=== PATIENT | female | born 1990 | race Caucasian/White ===

== ENCOUNTER 2016-07-09 03:20 | Emergency (ER) | payer OTHER ==
[~2016-07-09] VITALS: Ht 160 cm; Wt 91.5 kg
[~2016-07-09 03:20] MED LIST: AZIT250T94 PO; D-ME118S6 PO; IBUP-1542 PO
[2016-07-09 03:26] VITALS: Ht 160 cm; Wt 91.5 kg
[2016-07-09] MEDS ORDERED: ACETAMINOPHEN 500 MG TAB PO STA (04:43)
[2016-07-09] MEDS ORDERED: IBUPROFEN 800 MG TAB PO ONE (05:00)
[2016-07-09] MEDS ORDERED: AMOXICILLIN/CLAV 875 MG TAB PO ONE (05:00)
--- NOTE | 2016-07-09 05:07 | ERD ---
ER Documentation Chief Complaint Date/Time DATE: 07/09/16 TIME: 05:04 Chief Complaint sore throat, headache x 2 days HPI This is a 25-year-old female presents to the emergency room for evaluation of a sore throat, body aches, chills, and headache for the past 2 days. This patient states that her sore throat has gotten worse and it hurts when she swallows. She denies any difficulty breathing. She has not taken any medicine for her symptoms and came to the ER for evaluation. ROS All systems reviewed and are negative except as per history of present illness. Medications Home Meds Active Scripts Ibuprofen* (Motrin*) 600 Mg Tab, 600 MG PO Q6H Y for PAIN, #14 TAB Prov:MI LEUNG MD 07/01/15 Dextromethorphan Hb-Promethazine Hcl (Promethazine DM Syrup) 180 Ml Syrup, 5 ML PO Q6H Y for COUGH, #4 OZ Prov:MI LEUNG MD 07/01/15 Azithromycin* (Zithromax*) 250 Mg Tablet, 250 MG PO .ZPACK DIRECTED, #6 TAB TAKE 500 MG (2 TABS) THE FIRST DAY THEN 250 MG (1 TAB) DAYS 2-5 Prov:MI LEUNG MD 07/01/15 Allergies Allergies: Coded Allergies: No Known Allergy (Unverified , 07/01/15) PMhx/Soc History of Surgery: No Anesthesia Reaction: No Hx Neurological Disorder: No Hx Respiratory Disorders: No Hx Cardiac Disorders: No Hx Psychiatric Problems: No Hx Miscellaneous Medical Probl: No Hx Alcohol Use: No Hx Substance Use: No Hx Tobacco Use: No Physical Exam Vitals Vital Signs Date Time Temp Pulse Resp B/P Pulse Ox O2 Delivery O2 Flow Rate FiO2 07/09/16 03:26 101.7 116 20 137/67 98 Physical Exam INITIAL VITAL SIGNS: Reviewed by me GENERAL: The patient is well developed and appropriate for usual state of health in no apparent distress, warm to touch HEENT: Pharyngeal erythema with visible exudate noted on the bilateral tonsils, pupils equal, round, and reactive to light. EOMI. There is no scleral icterus. NECK: C-spine is soft and supple, there is no meningismus. There is no cervical lymphadenopathy. LUNGS: Clear to auscultation bilaterally. There are no rales, wheezes or rhonchi. HEART: Tachycardic, no murmurs, clicks, rubs or gallops. ABDOMEN: Soft, non-tender, non-distended. There are bowel sounds in all four quadrants. No rebound or guarding. EXTREMITIES: There is no peripheral cyanosis or edema. No focal swelling or erythema. NEUROLOGICAL: The patient moves all four extremities with 5/5 strength. Cranial nerves II - XII are intact. Normal gait. Alert and oriented SKIN: There is no apparent rash or petechiae. HEME/LYMPHATIC: There is no evidence of excessive bruising or lymphedema. PSYCHIATRIC: The patient does not appear anxious or depressed. Results 24 hrs Current Medications Medications (Trade) Dose Ordered Sig/Leticia Route PRN Reason Start Time Stop Time Status Last Admin Dose Admin Acetaminophen (Tylenol Tab) 1,000 mg ONCE STAT PO 07/09/16 04:43 07/09/16 04:45 DC 07/09/16 04:54 Ibuprofen (Motrin) 800 mg ONCE ONCE PO 07/09/16 05:00 07/09/16 05:01 DC 07/09/16 04:54 Amoxicillin/ Clavulanate Potassium (Augmentin) 875 mg ONCE ONCE PO 07/09/16 05:00 07/09/16 05:01 DC 07/09/16 05:03 Procedures/MDM This 25-year-old female presents to the emergency room for evaluation of multiple complaints including body aches, chills, fever, and sore throat. The patient was also complaining of a headache. This patient has no nuchal rigidity , negative Kernig and Babinski sign. She was febrile tachycardic on my examination. I did note white exudate in the oropharynx consistent with acute strep pharyngitis. This patient was given Tylenol and Motrin in the emergency room for pain and fever control. She was given 1 tab of Augmentin 875 mg in the emergency room. She will be discharged home at this time with a prescription for Motrin, and amoxicillin for acute strep pharyngitis. This patient has no signs of airway compromise at this time, she is tolerating secretions, no signs of tonsillar abscess or peritonsillar abscess Departure Diagnosis: Primary Impression: Acute streptococcal pharyngitis Additional Impression: Fever Condition: Stable ELISEO WHITFIELD DO Jul 09, 2016 05:07
[2016-07-09] MEDS ORDERED: AMO500 PO (05:08)
[2016-07-09] MEDS ORDERED: IBUP800T25 PO (05:08)
[2016-07-09 05:30] VITALS: PULSE 99; RESP 20; TEMP 100.6
== END 2016-07-09 05:30 | disposition home or self-care (01) ==
LOC: E/R 03:20
DX: J02.0 Streptococcal pharyngitis (principal); R50.9 Fever, unspecified
CPT/HCPCS: Z7610 ×3; 99283

== ENCOUNTER 2017-03-03 14:30 | Emergency (ER) | payer OTHER ==
[~2017-03-03] VITALS: Ht 157.5 cm; Wt 68.0 kg
[~2017-03-03 14:30] MED LIST changes: +AMOX500C2 PO; +IBUP800T25 PO
[2017-03-03 14:39] VITALS: Ht 157.5 cm; Wt 68.0 kg
[2017-03-03] MEDS ORDERED: ONDANSETRON (ODT) 4 MG TAB ODT STA (15:28)
[2017-03-03] MEDS ORDERED: FAMOTIDINE 20 MG TAB PO ONE (15:30)
--- NOTE | 2017-03-03 15:44 | ERD ---
ER Documentation Chief Complaint Chief Complaint ap with vomitinbg and diarrhea HPI 18-year-old female comes in with a one-day history nausea, vomiting and diarrhea as well as left quadrant abdominal pain. Patient reports 4 episodes of nonbloody nonbilious emesis with 4 episodes of loose stools are nonbloody non -mucousy. Her pain is in the left upper quadrant, nonradiating, mild, described as achy. She has not had any chills, chest pain, shortness breath. ROS All systems reviewed and are negative except as per history of present illness. Medications Home Meds Active Scripts Ondansetron (Ondansetron Odt) 4 Mg Tab.rapdis, 4 MG PO Q6H Y for NAUSEA AND/OR VOMITING, #10 TAB Prov:KEI BECKER PA-C 03/03/17 Ranitidine Hcl* (Zantac*) 150 Mg Tablet, 150 MG PO BID Y for EPIGASTRIC PAIN, # 30 TAB Prov:KEI BECKER PA-C 03/03/17 Amoxicillin* (Amoxicillin*) 500 Mg Cap, 500 MG PO TID for 10 Days, CAP Prov:ELISEO WHITFIELD DO 07/09/16 Ibuprofen* (Motrin*) 800 Mg Tab, 800 MG PO Q6H Y for PAIN AND OR ELEVATED TEMP, #30 TAB Prov:ELISEO WHITFIELD DO 07/09/16 Ibuprofen* (Motrin*) 600 Mg Tab, 600 MG PO Q6H Y for PAIN, #14 TAB Prov:MI LEUNG MD 07/01/15 Dextromethorphan Hb-Promethazine Hcl (Promethazine DM Syrup) 180 Ml Syrup, 5 ML PO Q6H Y for COUGH, #4 OZ Prov:MI LEUNG MD 07/01/15 Azithromycin* (Zithromax*) 250 Mg Tablet, 250 MG PO .ZPACK DIRECTED, #6 TAB TAKE 500 MG (2 TABS) THE FIRST DAY THEN 250 MG (1 TAB) DAYS 2-5 Prov:MI LEUNG MD 07/01/15 Allergies Allergies: Coded Allergies: No Known Allergy (Unverified , 07/01/15) PMhx/Soc History of Surgery: No Anesthesia Reaction: No Hx Neurological Disorder: No Hx Respiratory Disorders: No Hx Cardiac Disorders: No Hx Psychiatric Problems: No Hx Miscellaneous Medical Probl: No Hx Alcohol Use: No Hx Substance Use: No Hx Tobacco Use: No Physical Exam Vitals Vital Signs Date Time Temp Pulse Resp B/P Pulse Ox O2 Delivery O2 Flow Rate FiO2 03/03/17 14:39 98.1 89 18 147/89 99 Physical Exam General: Well-developed, well-nourished. The patient appears in no acute distress. HEENT: Head is normocephalic, atraumatic. No scleral icterus. Neck: Supple. Nontender. Lungs: Clear to auscultation. Normal air movement. Heart: Regular rate and rhythm. S1 and S2 are normal. No murmurs, gallops, or rubs. Abdomen: Soft, nontender, nondistended. Bowel sounds are normoactive. Extremities: No clubbing or cyanosis. Normal pulses. Moving extremities x 4. No weakness. Neurologic: Alert and oriented 3. No focal deficits. Skin: Normal turgor. No rash or lesions. Results 24 hrs Laboratory Tests Test 03/03/17 15:51 Bedside Urine pH (LAB) 5.5 Bedside Urine Protein (LAB) Negative Bedside Urine Glucose (UA) Negative Bedside Urine Ketones (LAB) Negative Bedside Urine Blood 1+ Bedside Urine Nitrite (LAB) Negative Bedside Urine Leukocyte Esterase (L Negative Current Medications Medications (Trade) Dose Ordered Sig/Leticia Route PRN Reason Start Time Stop Time Status Last Admin Dose Admin Ondansetron HCl (Zofran Odt) 4 mg ONCE STAT ODT 03/03/17 15:28 03/03/17 15:29 DC 03/03/17 15:55 Famotidine (Pepcid) 20 mg ONCE ONCE PO 03/03/17 15:30 03/03/17 15:31 DC 03/03/17 15:55 Procedures/MDM ED COURSE: Urine dip, urine was done. She was given a Pepcid 20 mg p.o. as well as Zofran 4 mg ODT. MEDICAL DECISION MAKIN-year-old female with vomiting, diarrhea with left upper quadrant abdominal pain, urine is negative and urine is negative for infection. Patient symptoms are most consistent with viral gastroenteritis. The patient's symptoms are treated with Pepcid and Zofran and she is feeling much better at this time. I doubt pancreatitis, dissection, acute coronary syndrome, acute hepatobiliary process. Departure Diagnosis: Primary Impression: Nausea vomiting and diarrhea Condition: Good KEI BECKER PA-C Mar 03, 2017 15:44
[2017-03-03 15:51] LABS: URINE BLOOD (Dip) POC 1+ (NEGATIVE)
[2017-03-03] MEDS ORDERED: ONDA4TAB14 PO (16:34)
[2017-03-03] MEDS ORDERED: RANI150T9 PO (16:34)
[2017-03-11] MEDS ORDERED: ONDA4TAB14 PO (21:20)
[2017-03-11] MEDS ORDERED: ACET325T33 PO (21:20)
== END 2017-03-03 18:40 | disposition home or self-care (01) ==
LOC: FTE 14:30
DX: R11.2 Nausea with vomiting, unspecified (principal); R19.7 Diarrhea, unspecified
CPT/HCPCS: 81003; Z7502; Z7610; 99283

== ENCOUNTER 2017-03-11 19:13 | Emergency (ER) | END 2017-03-11 21:41 | disposition home or self-care (01) ==

== ENCOUNTER 2017-03-18 11:56 | Emergency (ER) | payer OTHER ==
[~2017-03-18] VITALS: Ht 160 cm; Wt 92.3 kg
[~2017-03-18 11:56] MED LIST changes: +ACET325T33 PO; +ONDA4TAB14 PO; +RANI150T9 PO
[2017-03-18 12:14] VITALS: Ht 160 cm; Wt 92.3 kg
[2017-03-18] MEDS ORDERED: D-ME473S2 PO (12:37)
[2017-03-18] MEDS ORDERED: AZIT250T94 PO (12:37)
[2017-03-18] MEDS ORDERED: BENZ100C70 PO (12:37)
[2017-03-18 12:50] VITALS: TEMP 98.9
--- NOTE | 2017-03-18 18:54 | ERD ---
ER Documentation Chief Complaint Chief Complaint cough/congestion, fever x 1 week HPI 26-year-old female complaining of cough and congestion and fever 1 week. Patient has been taking Tessalon ywem-ico-vzomvnc with no alleviation of symptoms. Patient is also taking ibuprofen. Last dose was taken this morning. Denies medical problems. NKDA. Surgical history: Denies. Social history: Denies. No sick contacts ROS All systems reviewed and are negative except as per history of present illness. Medications Home Meds Active Scripts Azithromycin* (Zithromax*) 250 Mg Tablet, 250 MG PO .ZPACK DIRECTED, #6 TAB TAKE 500 MG (2 TABS) THE FIRST DAY THEN 250 MG (1 TAB) DAYS 2-5 Prov:KEVIN SPENCER PA-C 03/18/17 Benzonatate* (Tessalon Perle*) 100 Mg Capsule, 100 MG PO Q8H Y for COUGH, #30 CAP Prov:KEVIN SPENCER PA-C 03/18/17 Dextromethorphan Hb-Promethazine Hcl* (Promethazine DM* Syrup) 473 Ml Syrup, 5 ML PO Q6 Y for COUGH, #100 ML Prov:KEVIN SPENCER PA-C 03/18/17 Acetaminophen* (Tylenol*) 325 Mg Tablet, 2 TAB PO Q4 Y for PAIN AND OR ELEVATED TEMP, #30 TAB Prov:MICHELLE PERDOMO PA-C 03/11/17 Ondansetron (Ondansetron Odt) 4 Mg Tab.rapdis, 4 MG PO Q6H Y for NAUSEA AND/OR VOMITING, #20 TAB Prov:MICHELLE PERDOMO PA-C 03/11/17 Ondansetron (Ondansetron Odt) 4 Mg Tab.rapdis, 4 MG PO Q6H Y for NAUSEA AND/OR VOMITING, #10 TAB Prov:KEI BECKER PA-C 03/03/17 Ranitidine Hcl* (Zantac*) 150 Mg Tablet, 150 MG PO BID Y for EPIGASTRIC PAIN, # 30 TAB Prov:KEI BECKER PA-C 03/03/17 Amoxicillin* (Amoxicillin*) 500 Mg Cap, 500 MG PO TID for 10 Days, CAP Prov:ELISEO WHITFIELD DO 07/09/16 Ibuprofen* (Motrin*) 800 Mg Tab, 800 MG PO Q6H Y for PAIN AND OR ELEVATED TEMP, #30 TAB Prov:ELISEO WHITFIELD DO 07/09/16 Ibuprofen* (Motrin*) 600 Mg Tab, 600 MG PO Q6H Y for PAIN, #14 TAB Prov:MI LEUNG MD 07/01/15 Dextromethorphan Hb-Promethazine Hcl (Promethazine DM Syrup) 180 Ml Syrup, 5 ML PO Q6H Y for COUGH, #4 OZ Prov:MI LEUNG MD 07/01/15 Azithromycin* (Zithromax*) 250 Mg Tablet, 250 MG PO .ZPACK DIRECTED, #6 TAB TAKE 500 MG (2 TABS) THE FIRST DAY THEN 250 MG (1 TAB) DAYS 2-5 Prov:MI LEUNG MD 07/01/15 Allergies Allergies: Coded Allergies: No Known Allergy (Unverified , 07/01/15) PMhx/Soc Medical and Surgical Hx: pt denies Medical Hx, pt denies Surgical Hx History of Surgery: No Anesthesia Reaction: No Hx Neurological Disorder: No Hx Respiratory Disorders: No Hx Cardiac Disorders: No Hx Psychiatric Problems: No Hx Miscellaneous Medical Probl: No Hx Alcohol Use: Yes (once a week) Hx Substance Use: No Hx Tobacco Use: No Smoking Status: Never smoker Physical Exam Vitals Vital Signs Date Time Temp Pulse Resp B/P Pulse Ox O2 Delivery O2 Flow Rate FiO2 03/18/17 12:50 98.9 03/18/17 12:14 98.4 92 18 133/69 97 Physical Exam GENERAL: The patient is well-appearing, well-nourished, in no acute distress HEENT: Atraumatic. Conjunctivae are pink. Pupils equal, round, and reactive to light. There is no scleral icterus. Tympanic membranes clear bilaterally. Oropharynx clear. No nystagmus or photophobia. NECK: C-spine is soft and supple. There is no meningismus. There is no cervical lymphadenopathy. No JVD. No bruits. No goiter. CHEST: Clear to auscultation bilaterally. There are no rales, wheezes or rhonchi. HEART: Regular rate and rhythm. No murmurs, clicks, rubs or gallops. No S3 or S4. ABDOMEN:Soft, nontender and nondistended. Good bowel sounds. No rebound or guarding. No gross peritonitis. No gross organomegaly or masses. No Anglin sign or McBurney point tenderness. Procedures/MDM MDM: 26-year-old female complaining of cough and congestion 1 week. I have low suspicion for pneumonia as patient's breath sounds are within normal limits and vital signs are stable. I have low suspicion for bacterial HEENT infection. Patient's exam is within normal limits. I feel the patient would benefit from supportive medication for her cough. I have low suspicion for pulmonary emergency or cardiac emergency at this time. Vital signs are stable and exam is non-concerning. I believe patient has viral cough. Patient is discharged with strict ER precautions and recommended to follow-up with PMD within 1-2 days for close evaluation. Patient is discharged with strict ER precautions. Departure Diagnosis: Primary Impression: Cough Condition: Stable Patient Instructions: Cough, Chronic, Uncertain Cause, (Adult) Referrals: [facility] (PCP) Additional Instructions: FOLLOW UP WITH YOUR PRIMARY CARE PHYSICIAN TOMORROW.Return to this facility if you are not improving as expected. KEVIN SPENCER PA-C Mar 18, 2017 18:54
== END 2017-03-18 12:50 | disposition home or self-care (01) ==
LOC: FTE 11:56
DX: R05 Cough (principal); R09.81 Nasal congestion
CPT/HCPCS: 99284

== ENCOUNTER 2017-06-03 14:52 | Emergency (ER) | END 2017-06-03 15:05 | disposition home or self-care (01) ==

== ENCOUNTER 2017-06-18 04:33 | Emergency (ER) | END 2017-06-18 08:31 | disposition home or self-care (01) ==

== ENCOUNTER 2017-12-26 19:44 | Emergency (ER) | END 2017-12-26 21:28 | disposition home or self-care (01) ==

== ENCOUNTER 2018-08-19 00:11 | Emergency (ER) | payer MEDICAID, OTHER ==
[~2018-08-19] VITALS: Ht 154.9 cm; Wt 89.0 kg
[~2018-08-19 00:11] MED LIST changes: +ALBU18HF INHALATION; +AZIT250T PO; -AZIT250T94 PO; +BECL10.6 IH; +BENZ-6 PO; +BENZ200C68 PO; +CETI10CA PO; +D-ME118S24 PO; +D-ME473S2 PO; +FLUT9.9S NASAL; +GUAI118L22 PO; -IBUP800T25 PO; +IBUP800T48 PO; +PRED20TA PO; +RANI150T35 PO; -RANI150T9 PO
[2018-08-19 00:21] VITALS: Ht 154.9 cm; Wt 89.0 kg
--- NOTE | 2018-08-19 02:57 | ERD ---
ER Documentation Chief Complaint Chief Complaint mid epigastric pain x 2 weeks, denies n/v HPI This is a 27-year-old female who presents here in the emergency department with complaints of midepigastric pain that is on and off for about 2 weeks. LMP: 07/04/2018. A0. Denies headache, head injury, loss of consciousness, dizziness, neck pain, neck stiffness, throat pain, difficulty swallowing, difficulty breathing lying flat, shoulder pain, chest pain, back pain, nausea, vomiting, constipation, diarrhea, urinary symptoms, or possibility being , loss of bowel and bladder control, trauma, injury, falls, difficulty walking due to pain, numbness or tingling sensation, calf pain, recent travel, recent major surgery in the last 3 weeks, calf pain, recent long travel, recent exposure to any illness, re cent antibiotic use in the last 3 months, fever, chills, seizures. Past medical history: Surgical history: Social: Denies smoking, use of alcoholic beverages, use of illegal drugs. ROS All systems reviewed and are negative except as per history of present illness. Medications Home Meds Active Scripts Ondansetron Hcl* (Zofran*) 4 Mg Tablet, 4 MG PO Q8H PRN for NAUSEA AND/OR VOMITING, #30 TAB Prov:PASILABLANCOEHZOE F 08/19/18 Ibuprofen* (Motrin*) 800 Mg Tab, 800 MG PO Q6H PRN for PAIN AND OR ELEVATED TEMP, #30 TAB Prov:SOPHIEILABLANCOEHAR F 08/19/18 Cephalexin* (Keflex*) 500 Mg Capsule, 500 MG PO TID for 7 Days, CAP Prov:PASILABANEHAR F 08/19/18 D-Methorphan Hb/P-Epd HCl/Bpm (Oekwvwgwlv-Hpbnynsccgo-Mg Syr) 118 Ml Syrup, 5 ML PO Q4H PRN for COUGH, #1 BOTTLE Prov:LAWRENCE RIGGS DO 04/29/18 Beclomethasone Dipropionate (Qvar Redihaler (40 MCG)) 10.6 Gm Hfa.aeroba, 10.6 GM IH BID for cough, #1 INH Prov:LAWRENCE RIGGS DO 04/29/18 Ibuprofen* (Motrin*) 600 Mg Tab, 600 MG PO Q6, #30 TAB Prov:MARIETTA ABRAHAM PA-C 12/26/17 Benzonatate* (Benzonatate*) 200 Mg Capsule, 200 MG PO TID PRN for COUGH, #20 CAP Prov:MARIETTA ABRAHAM PA-C 12/26/17 Prednisone* (Prednisone*) 20 Mg Tab, 40 MG PO DAILY for 4 Days, TAB Prov:MARIETTA ABRAHAM PA-C 12/26/17 Albuterol Sulfate* (Ventolin HFA*) 18 Gm Hfa.aer.ad, 2 PUFF INHALATION Q4H, #1 INHALER Prov:MARIETTA ABRAHAM PA-C 12/26/17 Azithromycin* (Zithromax*) 250 Mg Tablet, 250 MG PO .ZPACK DIRECTED, #6 TAB TAKE 500 MG (2 TABS) THE FIRST DAY THEN 250 MG (1 TAB) DAYS 2-5 Prov:MARIETTA ABRAHAM PA-C 12/26/17 Guaifenesin/Codeine Phosphate (CHERATUSSIN AC SYRUP) 118 Ml Liquid, 5 ML PO Q4H PRN for COUGH, #118 ML Prov:KEI BECKER PA-C 06/18/17 Cetirizine Hcl* (Zyrtec*) 10 Mg Capsule, 10 MG PO DAILY, #10 TAB.CHEW Prov:KEI BECKER PA-C 06/18/17 Fluticasone Propionate (Flonase Allergy Relief) 9.9 Ml [place].susp, 1 SPRAY NASAL BID, #1 BOTTLE TO EACH NOSTRIL Prov:KEI BECKER PA-C 06/18/17 Prednisone* (Prednisone*) 20 Mg Tab, 40 MG PO DAILY for 5 Days, TAB Prov:KEI BECKER PA-C 06/18/17 Benzonatate* (Tessalon Perle*) 100 Mg Capsule, 100 MG PO Q8H PRN for COUGH, #30 CAP Prov:KEVIN SPENCER PA-C 06/03/17 Dextromethorphan Hb-Promethazine Hcl* (Promethazine DM* Syrup) 473 Ml Syrup, 5 ML PO Q6 PRN for COUGH, #100 ML Prov:KEVIN SPENCER PA-C 06/03/17 Azithromycin* (Zithromax*) 250 Mg Tablet, 250 MG PO .ZPACK DIRECTED, #6 TAB TAKE 500 MG (2 TABS) THE FIRST DAY THEN 250 MG (1 TAB) DAYS 2-5 Prov:KEVIN SPENCER PA-C 03/18/17 Benzonatate* (Tessalon Perle*) 100 Mg Capsule, 100 MG PO Q8H PRN for COUGH, #30 CAP Prov:KEVIN SPENCER PA-C 03/18/17 Dextromethorphan Hb-Promethazine Hcl* (Promethazine DM* Syrup) 473 Ml Syrup, 5 ML PO Q6 PRN for COUGH, #100 ML Prov:KEVIN SPENCER PA-C 03/18/17 Acetaminophen* (Tylenol*) 325 Mg Tablet, 2 TAB PO Q4 PRN for PAIN AND OR ELEVATED TEMP, #30 TAB Prov:MICHELLE PERDOMO PA-C 03/11/17 Ondansetron (Ondansetron Odt) 4 Mg Tab.rapdis, 4 MG PO Q6H PRN for NAUSEA AND/OR VOMITING, #20 TAB Prov:MICHELLE PERDOMO PA-C 03/11/17 Ondansetron (Ondansetron Odt) 4 Mg Tab.rapdis, 4 MG PO Q6H PRN for NAUSEA AND/OR VOMITING, #10 TAB Prov:KEI BECKER PA-C 03/03/17 Ranitidine Hcl* (Zantac*) 150 Mg Tablet, 150 MG PO BID PRN for EPIGASTRIC PAIN, #30 TAB Prov:KEI BECKER PA-C 03/03/17 Amoxicillin* (Amoxicillin*) 500 Mg Cap, 500 MG PO TID for 10 Days, CAP Prov:ELISEO WHITFIELD DO 07/09/16 Ibuprofen* (Motrin*) 800 Mg Tab, 800 MG PO Q6H PRN for PAIN AND OR ELEVATED TEMP, #30 TAB Prov:ELISEO WHITFIELD DO 07/09/16 Ibuprofen* (Motrin*) 600 Mg Tab, 600 MG PO Q6H PRN for PAIN, #14 TAB Prov:MI LEUNG MD 07/01/15 Dextromethorphan Hb-Promethazine Hcl (Promethazine DM Syrup) 180 Ml Syrup, 5 ML PO Q6H PRN for COUGH, #4 OZ Prov:MI LEUNG MD 07/01/15 Azithromycin* (Zithromax*) 250 Mg Tablet, 250 MG PO .ZPACK DIRECTED, #6 TAB TAKE 500 MG (2 TABS) THE FIRST DAY THEN 250 MG (1 TAB) DAYS 2-5 Prov:MI LEUNG MD 07/01/15 Allergies Allergies: Coded Allergies: No Known Allergy (Unverified , 08/19/18) PMhx/Soc Medical and Surgical Hx: pt denies Medical Hx, pt denies Surgical Hx History of Surgery: No Anesthesia Reaction: No Hx Neurological Disorder: No Hx Respiratory Disorders: No Hx Cardiac Disorders: No Hx Psychiatric Problems: No Hx Miscellaneous Medical Probl: No Hx Alcohol Use: No Hx Substance Use: No Hx Tobacco Use: No Smoking Status: Never smoker Physical Exam Vitals Physical Exam Const: No acute distress Head: Atraumatic Eyes: Normal Conjunctiva ENT: Normal External Ears, Nose and Mouth. Neck: Full range of motion. No meningismus. Resp: Clear to auscultation bilaterally Cardio: Regular rate and rhythm, no murmurs Abd: Soft, non tender, non distended. Normal bowel sounds. There is right upper abdominal tenderness to palpation. 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 No vesicular lesions. Negative [place] sign (heel jar test). Negative psoas sign. Negative Rovsing sign. No CVA tenderness. Ambulatory with steady gait and without pain to lower abdomen. Skin: No petechiae or rashes. No vesicular lesions. Color appears normal for ethnicity. Back: No midline or flank tenderness Ext: No cyanosis, or edema Neur: Awake and alert. No neurological deficits. Psych: Normal Mood and Affect Results 24 hrs Laboratory Tests Test 08/19/18 03:18 08/19/18 03:30 White Blood Count 9.9 10^3/ul Red Blood Count 4.58 10^6/ul Hemoglobin 13.2 g/dl Hematocrit 41.3 % Mean Corpuscular Volume 90.2 fl Mean Corpuscular Hemoglobin 28.8 pg Mean Corpuscular Hemoglobin Concent 32.0 g/dl Red Cell Distribution Width 12.4 % Platelet Count 316 10^3/UL Mean Platelet Volume 10.4 fl Immature Granulocytes % 0.300 % Neutrophils % 67.8 % Lymphocytes % 23.2 % Monocytes % 7.0 % Eosinophils % 1.5 % Basophils % 0.2 % Nucleated Red Blood Cells % 0.0 /100WBC Immature Granulocytes # 0.030 10^3/ul Neutrophils # 6.7 10^3/ul Lymphocytes # 2.3 10^3/ul Monocytes # 0.7 10^3/ul Eosinophils # 0.2 10^3/ul Basophils # 0.0 10^3/ul Nucleated Red Blood Cells # 0.0 10^3/ul Urine Color YELLOW Urine Clarity CLOUDY Urine pH 7.0 Urine Specific [place] 1.011 Urine Ketones NEGATIVE mg/dL Urine Nitrite NEGATIVE mg/dL Urine Bilirubin NEGATIVE mg/dL Urine Urobilinogen NEGATIVE mg/dL Urine Leukocyte Esterase 1+ Raphael/ul Urine Microscopic RBC 2 /HPF Urine Microscopic WBC 11 /HPF Urine Squamous Epithelial Cells MANY /HPF Urine Amorphous Crystals FEW /HPF Urine Bacteria FEW /HPF Urine Hemoglobin NEGATIVE mg/dL Urine Glucose NEGATIVE mg/dL Urine Total Protein NEGATIVE mg/dl Sodium Level 142 mmol/L Potassium Level 3.7 mmol/L Chloride Level 105 mmol/L Carbon Dioxide Level 29 mmol/L Anion Gap 8 Blood Urea Nitrogen 11 mg/dl Creatinine 0.55 mg/dl Est Glomerular Filtrat Rate mL/min > 60 mL/min Glucose Level 108 mg/dl Calcium Level 8.9 mg/dl Total Bilirubin 0.3 mg/dl Direct Bilirubin 0.00 mg/dl Indirect Bilirubin 0.3 mg/dl Aspartate Amino Transf (AST/SGOT) 27 IU/L Alanine Aminotransferase (ALT/SGPT) 31 IU/L Alkaline Phosphatase 66 IU/L Total Protein 7.9 g/dl Albumin 4.3 g/dl Globulin 3.60 g/dl Albumin/Globulin Ratio 1.19 Amylase Level 80 U/L Lipase 145 U/L POC Beta HCG, Qualitative NEGATIVE Current Medications Medications Dose Sig/Leticia Start Time Status Last (Trade) Ordered Route PRN Stop Time Admin Dose Reason Admin Ondansetron 4 mg ONCE STAT 08/19/18 DC 08/19/18 HCl (Zofran IV 02:58 03:14 Inj) 08/19/18 03:01 Morphine 4 mg ONCE STAT 08/19/18 DC 08/19/18 Sulfate IV 02:58 03:14 (morphine) 08/19/18 03:01 Sodium 1,000 ml @ Q1H ONCE 08/19/18 DC 08/19/18 Chloride 1,000 mls/hr IV 03:00 03:14 08/19/18 03:59 Procedures/MDM Diagnostic tests: POC urine : Negative. Urinalysis: Reviewed. Blood works: Reviewed. Ultrasound of the gallbladder: Unremarkable right upper quadrant ultrasound. Negative for gallstones. Treatment: Saline lock. Normal saline IV. Morphine IV. Zofran IV. Re-evaluation: No episode of emesis here in the emergency department. Negative Anglin sign. Negative [place] sign (heel jar test). Negative psoas sign. Negative Rovsing sign. Able to jump twice without developing lower abdominal pain. No CVA tenderness. Stated that she feels much better at this time and that she is ready to go home. Differential diagnosis I have low suspicion for sepsis, cholecystitis, pancreatitis, diverticulitis, shingles, bowel obstruction, obstructing kidney stones, nephrolithiasis, pyelonephritis, septic stone, ovarian cyst rupture, ovarian torsion. Final diagnosis: UTI. Abdominal pain. Prescription: Keflex. Motrin. Zofran. Follow-up with PCP in the next 24-48 hours. Come back here in the emergency department for any new symptoms or any worsening symptoms. All questions and concerns were answered. Patient and family members verbalized understanding and agreed with plan of care. Hemodynamically stable on discharge. Departure Diagnosis: Primary Impression: Abdominal pain Additional Impression: Urinary tract infection Condition: Stable Additional Instructions: Follow-up with PCP in the next 24-48 hours. Come back here in the emergency department for any new symptoms or any worsening symptoms. ARABELLA WIN August 19, 2018 02:57
[2018-08-19] MEDS ORDERED: morphine 4 MG/ML VIAL IV STA (02:58)
[2018-08-19] MEDS ORDERED: ONDANSETRON 4 MG INJ IV STA (02:58)
[2018-08-19] MEDS ORDERED: SOD CHLORIDE 0.9% 1,000 ML IV ONE (03:00)
[2018-08-19] MEDS ORDERED: CEPH-443 PO (05:17)
[2018-08-19] MEDS ORDERED: ONDA4TAB8 PO (05:17)
[2018-08-19] MEDS ORDERED: IBUP800T48 PO (05:17)
[2018-08-19 05:47] VITALS: BP 132/82; PULSE 88; RESP 16
== END 2018-08-19 05:47 | disposition home or self-care (01) ==
LOC: FTE 00:11
DX: N39.0 Urinary tract infection, site not specified (principal)
CPT/HCPCS: 36415; 76705; 80053; 81001; 81025; 82150; 83690; 85025; 87086; 96374; 96375; J2270; J2405; J7030; Z7502

== ENCOUNTER 2018-09-05 02:16 | Emergency (ER) | payer MEDICAID ==
[~2018-09-05] VITALS: Ht 154.9 cm; Wt 89.9 kg
[~2018-09-05 02:16] MED LIST changes: +CEPH-443 PO; +ONDA4TAB8 PO
[2018-09-05 02:23] VITALS: BP 126/81; PULSE 80; RESP 18; Ht 154.9 cm; Wt 89.9 kg
[2018-09-05] MEDS ORDERED: D-ME118S24 PO (05:05)
[2018-09-05] MEDS ORDERED: AMOX1TAB10 PO (05:08)
--- NOTE | 2018-09-05 05:10 | ERD ---
ER Documentation Chief Complaint Chief Complaint cough x 10 days, also c/o right earache ROS All systems reviewed and are negative except as per history of present illness. Medications Home Meds Active Scripts Amoxicillin/Potassium Clav (Amox-Clav 875-125 mg Tablet) 875-125 mg Tab, 1 TAB PO BID for right ear infection for 5 Days, #14 TAB Prov:LAWRENCE RIGGS DO 09/05/18 D-Methorphan Hb/P-Epd HCl/Bpm (Fkaoxnfnsk-Vzpzqbtgsff-Iw Syr) 118 Ml Syrup, 5 ML PO Q4H PRN for COUGH for 10 Days, #1 BOTTLE Prov:LAWRENCE RIGGS DO 09/05/18 Ondansetron Hcl* (Zofran*) 4 Mg Tablet, 4 MG PO Q8H PRN for NAUSEA AND/OR VOMITING, #30 TAB Prov:ARABELLA WIN 08/19/18 Ibuprofen* (Motrin*) 800 Mg Tab, 800 MG PO Q6H PRN for PAIN AND OR ELEVATED TEMP, #30 TAB Prov:ARABELLA WIN 08/19/18 Cephalexin* (Keflex*) 500 Mg Capsule, 500 MG PO TID for 7 Days, CAP Prov:ARABELLA WIN 08/19/18 D-Methorphan Hb/P-Epd HCl/Bpm (Xcsjhbfyvy-Xswpjscnfva-Df Syr) 118 Ml Syrup, 5 ML PO Q4H PRN for COUGH, #1 BOTTLE Prov:LAWRENCE RIGGS DO 04/29/18 Beclomethasone Dipropionate (Qvar Redihaler (40 MCG)) 10.6 Gm Hfa.aeroba, 10.6 GM IH BID for cough, #1 INH Prov:LAWRENCE RIGGS DO 04/29/18 Ibuprofen* (Motrin*) 600 Mg Tab, 600 MG PO Q6, #30 TAB Prov:MARIETTA ABRAHAM PA-C 12/26/17 Benzonatate* (Benzonatate*) 200 Mg Capsule, 200 MG PO TID PRN for COUGH, #20 CAP Prov:MARIETTA ABRAHAM PA-C 12/26/17 Prednisone* (Prednisone*) 20 Mg Tab, 40 MG PO DAILY for 4 Days, TAB Prov:MARIETTA ABRAHAM PA-C 12/26/17 Albuterol Sulfate* (Ventolin HFA*) 18 Gm Hfa.aer.ad, 2 PUFF INHALATION Q4H, #1 INHALER Prov:MARIETTA ABRAHAM PA-C 12/26/17 Azithromycin* (Zithromax*) 250 Mg Tablet, 250 MG PO .ZPACK DIRECTED, #6 TAB TAKE 500 MG (2 TABS) THE FIRST DAY THEN 250 MG (1 TAB) DAYS 2-5 Prov:MARIETTA ABRAHAM PA-C 12/26/17 Guaifenesin/Codeine Phosphate (CHERATUSSIN AC SYRUP) 118 Ml Liquid, 5 ML PO Q4H PRN for COUGH, #118 ML Prov:KEI BECKER PA-C 06/18/17 Cetirizine Hcl* (Zyrtec*) 10 Mg Capsule, 10 MG PO DAILY, #10 TAB.CHEW Prov:KEI BECKER PA-C 06/18/17 Fluticasone Propionate (Flonase Allergy Relief) 9.9 Ml [place].susp, 1 SPRAY NASAL BID, #1 BOTTLE TO EACH NOSTRIL Prov:KEI BECKER PA-C 06/18/17 Prednisone* (Prednisone*) 20 Mg Tab, 40 MG PO DAILY for 5 Days, TAB Prov:KEI BECKER PA-C 06/18/17 Benzonatate* (Tessalon Perle*) 100 Mg Capsule, 100 MG PO Q8H PRN for COUGH, #30 CAP Prov:KEVIN SPENCER PA-C 06/03/17 Dextromethorphan Hb-Promethazine Hcl* (Promethazine DM* Syrup) 473 Ml Syrup, 5 ML PO Q6 PRN for COUGH, #100 ML Prov:KEVIN SPENCER PA-C 06/03/17 Azithromycin* (Zithromax*) 250 Mg Tablet, 250 MG PO .ZPACK DIRECTED, #6 TAB TAKE 500 MG (2 TABS) THE FIRST DAY THEN 250 MG (1 TAB) DAYS 2-5 Prov:KEVIN SPENCER PA-C 03/18/17 Benzonatate* (Tessalon Perle*) 100 Mg Capsule, 100 MG PO Q8H PRN for COUGH, #30 CAP Prov:KEVIN SPENCER PA-C 03/18/17 Dextromethorphan Hb-Promethazine Hcl* (Promethazine DM* Syrup) 473 Ml Syrup, 5 ML PO Q6 PRN for COUGH, #100 ML Prov:KEVIN SPENCER PA-C 03/18/17 Acetaminophen* (Tylenol*) 325 Mg Tablet, 2 TAB PO Q4 PRN for PAIN AND OR ELEVATED TEMP, #30 TAB Prov:MICHELLE PERDOMO PA-C 03/11/17 Ondansetron (Ondansetron Odt) 4 Mg Tab.rapdis, 4 MG PO Q6H PRN for NAUSEA AND/OR VOMITING, #20 TAB Prov:MICHELLE PERDOMO PA-C 03/11/17 Ondansetron (Ondansetron Odt) 4 Mg Tab.rapdis, 4 MG PO Q6H PRN for NAUSEA AND/OR VOMITING, #10 TAB Prov:KEI BECKER PA-C 03/03/17 Ranitidine Hcl* (Zantac*) 150 Mg Tablet, 150 MG PO BID PRN for EPIGASTRIC PAIN, #30 TAB Prov:KEI BECKER PA-C 03/03/17 Amoxicillin* (Amoxicillin*) 500 Mg Cap, 500 MG PO TID for 10 Days, CAP Prov:ELISEO WHITFIELD DO 07/09/16 Ibuprofen* (Motrin*) 800 Mg Tab, 800 MG PO Q6H PRN for PAIN AND OR ELEVATED TEMP, #30 TAB Prov:ELISEO WHITFIELD DO 07/09/16 Ibuprofen* (Motrin*) 600 Mg Tab, 600 MG PO Q6H PRN for PAIN, #14 TAB Prov:MI LEUNG MD 07/01/15 Dextromethorphan Hb-Promethazine Hcl (Promethazine DM Syrup) 180 Ml Syrup, 5 ML PO Q6H PRN for COUGH, #4 OZ Prov:MI LEUNG MD 07/01/15 Azithromycin* (Zithromax*) 250 Mg Tablet, 250 MG PO .ZPACK DIRECTED, #6 TAB TAKE 500 MG (2 TABS) THE FIRST DAY THEN 250 MG (1 TAB) DAYS 2-5 Prov:MI LEUNG MD 07/01/15 Allergies Allergies: Coded Allergies: No Known Allergy (Unverified , 5/31/19) PMhx/Soc History of Surgery: No Anesthesia Reaction: No Hx Neurological Disorder: No Hx Respiratory Disorders: Yes (ASTHMA) Hx Cardiac Disorders: No Hx Psychiatric Problems: No Hx Miscellaneous Medical Probl: No Hx Alcohol Use: No Hx Substance Use: No Hx Tobacco Use: No Smoking Status: Never smoker Physical Exam Vitals Vital Signs Date Temp Pulse Resp B/P (MAP) Pulse Ox O2 O2 Flow FiO2 Time Delivery Rate 09/05/18 98.2 80 18 126/81 99 02:23 (96) Physical Exam Const: No acute distress Head: Atraumatic Eyes: Normal Conjunctiva ENT: Normal External Ears, Nose and Mouth. Neck: Full range of motion. No meningismus. Resp: Clear to auscultation bilaterally Cardio: Regular rate and rhythm, no murmurs Abd: Soft, non tender, non distended. Normal bowel sounds Skin: No petechiae or rashes Back: No midline or flank tenderness Ext: No cyanosis, or edema Neur: Awake and alert Psych: Normal Mood and Affect Departure Diagnosis: Primary Impression: Right otitis media Otitis media type: unspecified Qualified Codes: H66.91 - Otitis media, unspecified, right ear Additional Impression: Cough Condition: Fair Patient Instructions: Cough, Chronic, Uncertain Cause, (Adult), Otitis Media, Abx Tx (Adult) Referrals: [facility] YOU HAVE RECEIVED A MEDICAL SCREENING EXAM AND THE RESULTS INDICATE THAT YOU DO NOT HAVE A CONDITION THAT REQUIRES URGENT TREATMENT IN THE EMERGENCY DEPARTMENT. FURTHER EVALUATION AND TREATMENT OF YOUR CONDITION CAN WAIT UNTIL YOU ARE SEEN IN YOUR DOCTORS OFFICE WITHIN THE NEXT 1-2 DAYS. IT IS YOUR RESPONSIBILITY TO MAKE AN APPOINTMENT FOR FOLOW-UP CARE. IF YOU HAVE A PRIMARY DOCTOR --you should call your primary doctor and schedule an appointment IF YOU DO NOT HAVE A PRIMARY DOCTOR YOU CAN CALL OUR PHYSICIAN REFERRAL HOTLINE AT IF YOU CAN NOT AFFORD TO SEE A PHYSICIAN YOU CAN CHOSE FROM THE FOLLOWING [facility] [address] [facility]. [facility] [address] [facility] [facility] [address] [facility] [address] [facility] [address] [facility]. [facility] [address] Additional Instructions: Call your primary care doctor TOMORROW for an appointment during the next 1-2 days.See the doctor sooner or return here if your condition worsens before your appointment time. LAWRENCE RIGGS DO Sep 05, 2018 05:10
== END 2018-09-05 05:26 | disposition home or self-care (01) ==
LOC: FTE 02:16
DX: H66.91 Otitis media, unspecified, right ear (principal); R05 Cough; J45.909 Unspecified asthma, uncomplicated
CPT/HCPCS: 99283